=== PATIENT | female | born 1965 | race Caucasian/White ===

== ENCOUNTER → 2019-08-07 | Outpatient (REF) | payer OTHER | LOC: M LAB LCGH 13:59 | PROVIDERS: ATTEND Obstetrics & Gynecology | DX: Z12.4 Encounter for screening for malignant neoplasm of cervix (principal) | CPT/HCPCS: 87624; G0123 ==

== ENCOUNTER → 2023-01-19 | Outpatient (REF) | payer OTHER, BC | LOC: M SFHCDERM 08:20 | PROVIDERS: ATTEND Physician Assistant | DX: D22.39 Melanocytic nevi of other parts of face (principal) ==

== ENCOUNTER → 2024-03-20 | Outpatient (REF) | payer OTHER, BC | LOC: M SFHCDERM 18:04 | PROVIDERS: ATTEND Physician Assistant | DX: D23.71 Other benign neoplasm of skin of right lower limb, including hip (principal); L81.4 Other melanin hyperpigmentation ==

== ENCOUNTER → 2024-05-30 | Outpatient (REF) | payer OTHER, BC | LOC: M SFHCDERM 17:49 | PROVIDERS: ATTEND Dermatology | DX: Z48.89 Encounter for other specified surgical aftercare (principal) ==